=== PATIENT | male | born 1995 | race Hispanic/Latino ===

== ENCOUNTER 2018-11-23 22:45 | Emergency (ER) | payer OTHER ==
--- NOTE | 2018-11-23 23:52 | EDPHYS ---
Physician Documentation [facility] Name: Lino Sweeney Jr Age: 23 yrs Sex: Male : 1995 Arrival Date: 11/23/2018 Time: 22:49 Bed 5 Private MD: ED Physician Kaz Ma HPI: 11/23 23:51 This 23 yrs old Male presents to ER via Ambulatory with complaints of Head and jmm Ear Problems. 23:51 The patient presents with pain. Onset: The symptoms/episode began/occurred gradually, 1 jmm week(s) ago. 23:51 Modifying factors: The symptoms are alleviated by nothing, the symptoms are aggravated jmm by nothing. Associated signs and symptoms: Pertinent negatives: fever. This is a 23 year old male with no chronic medical conditions that presents to the ED with complaints of left ear pain. Patient states having similar episodes in the past. Patient also complains of a mild chronic headache. Denies fever. . Historical: - Allergies: 23:08 No Known Allergies; tl2 - Home Meds: 23:08 None [Active]; tl2 - PMHx: 23:08 None; tl2 - PSHx: 23:08 None; tl2 - Immunization history:: Adult Immunizations up to date. - Social history:: Smoking status: Patient uses tobacco products, denies chronic smoking, but will smoke occasionally. - Ebola Screening: : No symptoms or risks identified at this time. ROS: 23:51 Constitutional: Negative for fever, chills, and weight loss. jmm 23:51 Neck: Negative for injury, pain, and swelling, Respiratory: Negative for shortness of breath, cough, wheezing, and pleuritic chest pain, Abdomen/GI: Negative for abdominal pain, nausea, vomiting, diarrhea, and constipation. 23:51 ENT: Positive for ear pain. 23:51 Neuro: Positive for headache. 23:51 All other systems are negative. Exam: 23:51 Constitutional: This is a well developed, well nourished patient who is awake, alert, jmm and in no acute distress. Head/Face: atraumatic. Eyes: EOMI, no conjunctival erythema appreciated ENT: Moist Mucus Membranes Neck: Trachea midline, Supple Chest/axilla: Normal chest wall appearance and motion. Cardiovascular: Regular rate and rhythm. No edema appreciated Respiratory: Normal respirations, no respiratory distress appreciated Abdomen/GI: Non distended, soft Back: Normal ROM Skin: General appearance color normal MS/ Extremity: Moves all extremities, no obvious deformities appreciated, no edema noted to the lower extremities Neuro: Awake and alert, normal gait Psych: Behavior is normal, Mood is normal, Patient is cooperative and pleasant 23:51 ENT: TM's: erythema, that is moderate, on the left. Vital Signs: 23:08 BP 139 / 74; Pulse 100; Resp 20; Temp 98.2(O); Pulse Ox 98% on R/A; Weight 90.72 kg; tl2 Height 5 ft. 7 in. (170.18 cm); Pain 02/02; 11/24 00:16 BP 120 / 69; Pulse 80; Resp 16; Temp 98.2; Pulse Ox 98% on R/A; ak1 11/23 23:08 Body Mass Index 31.32 (90.72 kg, 170.18 cm) tl2 MDM: 11/23 23:51 Patient medically screened. [facility] 23:51 Data reviewed: vital signs, nurses notes. Counseling: I had a detailed discussion with jag the patient and/or guardian regarding: the historical points, exam findings, and any diagnostic results supporting the discharge/admit diagnosis, the need for outpatient follow up, to return to the emergency department if symptoms worsen or persist or if there are any questions or concerns that arise at home. 23:51 ED course: Patient is alert and non toxic in appearance in the ED. PE findings jmm consistent with OM. Patient is advised to follow up with ENT for further evaluation. . Administered Medications: No medications were administered Disposition: 11/23/18 23:52 Discharged to Home. Impression: Acute serous otitis media, left ear. - Condition is Stable. - Discharge Instructions: Otitis Media, Adult. - Prescriptions for Amoxicillin 875 mg Oral Tablet - take 1 tablet by ORAL route every 12 hours for 10 days; 20 tablet. - Medication Reconciliation Form, Thank You Letter, Antibiotic Education, Prescription Opioid Use form. - Follow up: Private Physician; When: 2 - 3 days; Reason: Recheck today's complaints, Continuance of care, Re-evaluation by your physician. Signatures: Chas Ying PA PA jmm Krenek, Amber RN RN ak1 Perea, Talia, RN RN tl2 Corrections: (The following items were deleted from the chart) 11/24 00:17 11/23 23:52 11/23/2018 23:52 Discharged to Home. Impression: Acute serous otitis media, ak1 left ear. Condition is Stable. Forms are Medication Reconciliation Form, Thank You Letter, Antibiotic Education, Prescription Opioid Use. Follow up: Private Physician; When: 2 - 3 days; Reason: Recheck today's complaints, Continuance of care, Re-evaluation by your physician. jag
--- NOTE | 2018-11-23 23:52 | ER ---
Nurse's Notes [facility] Name: Lino Sweeney Jr Age: 23 yrs Sex: Male : 1995 Arrival Date: 11/23/2018 Time: 22:49 Bed 5 Private MD: Diagnosis: Acute serous otitis media, left ear Presentation: 11/23 23:07 Presenting complaint: Patient states: head pain and left ear pain. Pt states he's had tl2 ear pain for 3 years but it's worse today. Transition of care: patient was not received from another setting of care. Onset of symptoms is unknown. Risk Assessment: Do you want to hurt yourself or someone else? Patient reports no desire to harm self or others. Initial Sepsis Screen: Does the patient meet any 2 criteria? No. Patient's initial sepsis screen is negative. Does the patient have a suspected source of infection? No. Patient's initial sepsis screen is negative. Care prior to arrival: None. 23:07 Method Of Arrival: Ambulatory tl2 23:07 Acuity: VIOLETTE 4 tl2 Triage Assessment: 23:08 General: Appears in no apparent distress. uncomfortable, Behavior is calm, cooperative, tl2 appropriate for age. Pain: Complains of pain in left ear. Historical: - Allergies: 23:08 No Known Allergies; tl2 - Home Meds: 23:08 None [Active]; tl2 - PMHx: 23:08 None; tl2 - PSHx: 23:08 None; tl2 - Immunization history:: Adult Immunizations up to date. - Social history:: Smoking status: Patient uses tobacco products, denies chronic smoking, but will smoke occasionally. - Ebola Screening: : No symptoms or risks identified at this time. Screenin:23 Abuse screen: Denies threats or abuse. Denies injuries from another. Nutritional ak1 screening: No deficits noted. Tuberculosis screening: No symptoms or risk factors identified. Fall Risk None identified. Assessment: 11/24 00:16 Reassessment: Patient appears in no apparent distress at this time. Patient and/or ak1 family updated on plan of care and expected duration. Pain level reassessed. Patient is alert, oriented x 3, equal unlabored respirations, skin warm/dry/pink. Vital Signs: 11/23 23:08 BP 139 / 74; Pulse 100; Resp 20; Temp 98.2(O); Pulse Ox 98% on R/A; Weight 90.72 kg; tl2 Height 5 ft. 7 in. (170.18 cm); Pain 02/02; 11/24 00:16 BP 120 / 69; Pulse 80; Resp 16; Temp 98.2; Pulse Ox 98% on R/A; ak1 11/23 23:08 Body Mass Index 31.32 (90.72 kg, 170.18 cm) tl2 ED Course: 11/23 22:49 Patient arrived in ED. do 23:08 Triage completed. tl2 23:08 Arm band placed on right wrist. tl2 23:23 Silvia Ellis, RN is Primary Nurse. ak1 23:23 Patient has correct armband on for positive identification. Bed in low position. Call ak1 light in reach. Side rails up X 1. Pulse ox on. NIBP on. 23:28 Chas Ying PA is PHCP. [facility] 23:28 Kaz Ma MD is Attending Physician. [facility] 11/24 00:11 No provider procedures requiring assistance completed. Patient did not have IV access ak1 during this emergency room visit. Administered Medications: No medications were administered Outcome: 11/23 23:52 Discharge ordered by . [facility] 11/24 00:11 Discharged to home ambulatory. ak1 Condition: good Discharge instructions given to patient, Instructed on discharge instructions, follow up and referral plans. no drinking with medication, no driving heavy equipment, medication usage, Demonstrated understanding of instructions, follow-up care, medications, Prescriptions given X 1. 00:17 Patient left the ED. ak1 Signatures: Chas Ying PA PA jmm Krenek, Amber, RN RN ak1 Natty Fleming Taylor RN RN tl2
== END 2018-11-24 00:17 | disposition home or self-care (01) ==
LOC: ER 22:45
DX: H65.02 Acute serous otitis media, left ear (principal); Z72.0 Tobacco use
CPT/HCPCS: 99283

== ENCOUNTER 2019-07-19 14:27 | Emergency (ER) | payer SELFPAY ==
[2019-07-19] MEDS ORDERED: ACETAMINOPHEN 500 MG TAB ONE (14:42)
[2019-07-19] MEDS ORDERED: NA CHLORIDE 0.9% 1,000 ML ONE (15:04)
[2019-07-19 15:32] LABS: Absolute Lymphocytes (CBC) 0.9 K/uL (0.7-4.9); Basophils % 0.1 % (0-1.3); Hematocrit 44.4 % (39.6-49.0); Lymphocytes % 6.7 % (15.3-44.8); MPV 11.4 fL (7.6-11.3)
[2019-07-19 15:42] LABS: Urine Amorphous Sediment 1+ /HPF (NONE SEEN); Urine Bacteria <20 /HPF (NONE SEEN); Urine Culture Reflex Order REFLEXED; Urine Mucus 2+ /HPF (NONE SEEN); Urine RBC <5 /HPF (NONE SEEN); Urine Sperm PRESENT (NONE SEEN)
[2019-07-19 15:46] LABS: Albumin 3.7 g/dL (3.4-5.0); Bilirubin Direct 0.6 mg/dL (0-0.2); Bilirubin Total 2.7 mg/dL (0.2-1.0); Potassium 3.5 mmol/L (3.5-5.1); Protein, Total 8.2 g/dL (6.4-8.2)
--- NOTE | 2019-07-19 16:03 | RAD REPORT ---
EXAM DESCRIPTION: RAD - Chest Single View - 07/19/2019 3:50 pm CLINICAL HISTORY: COUGH Chest pain. COMPARISON: No comparisons FINDINGS: Portable technique limits examination quality. Mildly prominent interstitial lung markings are seen. The heart is normal in size. No displaced fract ures. IMPRESSION: Interstitial prominence is seen likely representing viral pneumonitis or bronchitis.
[2019-07-19 16:04] LABS: Urine White Blood Cell Casts OK
[2019-07-19 16:05] LABS: Blood Morphology Comment NOT SEEN (NOT SEEN); Platelet Estimate ADEQ; Platelets, Giant PRESENT
--- NOTE | 2019-07-19 16:50 | RAD REPORT ---
EXAM DESCRIPTION: CTAbdomen Pelvis W Contrast - 07/19/2019 4:41 pm CLINICAL HISTORY: Abdominal pain. abd pain COMPARISON: No comparisons TECHNIQUE: Biphasic CT imaging of the abdomen and pelvis was performed with 100 ml non-ionic IV cont rast. All CT scans are performed using dose optimization technique as appropriate and may include automated exposure control or mA/KV adjustment according to patient size. FINDINGS: Poorly defined ground-glass opacities in both lung bases suggests alveolitis/inflammation. The liver demonstrates diffuse fatty infiltration. The spleen, pancreas, adrenal glands and kidneys a re within normal limits. No bowel obstruction, free air, free fluid or abscess. The appendix is normal. No evidence of signi ficant lymphadenopathy. No suspicious bony findings. IMPRESSION: Ground-glass opacities in both lung bases suggests alveolitis/inflammation. Mild fatty liver.
--- NOTE | 2019-07-19 17:01 | EDPHYS ---
Physician Documentation [facility] Name: Lino Sweeney Jr Age: 24 yrs Sex: Male : 1995 Arrival Date: 07/19/2019 Time: 14:29 Bed 25 Private MD: ED Physician Nico Harris HPI: 07/19 15:06 This 24 yrs old Male presents to ER via Ambulatory with complaints of body jr8 aches, Feels warm to touch. 15:06 The patient reports fever, with an emergency department temperature of 100.5 degrees jr8 Fahrenheit. Onset: The symptoms/episode began/occurred gradually, 4 day(s) ago. Modifying factors: there are no obvious modifying factors. Associated signs and symptoms: Pertinent positives: arthralgias, nausea. Severity of symptoms: At their worst the symptoms were mild in the emergency department the symptoms are unchanged. The patient has not experienced similar symptoms in the past. The patient has not recently seen a physician. 15:06 Stated that this morning noted a change in urine color. Thought he may have saw some jr8 blood . Historical: - Allergies: 14:35 No Known Allergies; rv - Home Meds: 14:35 None [Active]; rv - PMHx: 14:35 None; rv - PSHx: 14:35 None; rv - Immunization history:: Adult Immunizations. - Social history:: Smoking status: Patient/guardian denies using tobacco, the patient reports quitting approximately .5 years ago. - Ebola Screening: : No symptoms or risks identified at this time. ROS: 15:06 Eyes: Negative for injury, pain, redness, and discharge, ENT: Negative for injury, jr8 pain, and discharge, Neck: Negative for injury, pain, and swelling, Cardiovascular: Negative for chest pain, palpitations, and edema, Respiratory: Negative for shortness of breath, cough, wheezing, and pleuritic chest pain, Back: Negative for injury and pain, MS/Extremity: Negative for injury and deformity, Skin: Negative for injury, rash, and discoloration. 15:06 Constitutional: Positive for body aches, chills, fever. 15:06 Abdomen/GI: Positive for nausea, Negative for abdominal pain, vomiting, diarrhea, constipation, abdominal cramps, abdominal distension, anorexia, dysphagia, hematemesis, black/tarry stool, rectal pain, rectal bleeding, bowel incontinence, flatulence. 15:06 : Positive for hematuria. 15:06 Neuro: Positive for headache, Negative for altered mental status, dizziness, gait disturbance, hearing loss, loss of consciousness, numbness, seizure activity, speech changes, syncope, near syncope, tingling, tinnitus, tremor, visual changes, weakness. Exam: 15:06 Eyes: Pupils equal round and reactive to light, extra-ocular motions intact. Lids and jr8 lashes normal. Conjunctiva and sclera are non-icteric and not injected. Cornea within normal limits. Periorbital areas with no swelling, redness, or edema. ENT: Nares patent. No nasal discharge, no septal abnormalities noted. Tympanic membranes are normal and external auditory canals are clear. Oropharynx with no redness, swelling, or masses, exudates, or evidence of obstruction, uvula midline. Mucous membranes moist. Neck: Trachea midline, no thyromegaly or masses palpated, and no cervical lymphadenopathy. Supple, full range of motion without nuchal rigidity, or vertebral point tenderness. No Meningismus. Cardiovascular: Regular rate and rhythm with a normal S1 and S2. No gallops, murmurs, or rubs. Normal PMI, no JVD. No pulse deficits. Respiratory: Lungs have equal breath sounds bilaterally, clear to auscultation and percussion. No rales, rhonchi or wheezes noted. No increased work of breathing, no retractions or nasal flaring. Abdomen/GI: Soft, non-tender, with normal bowel sounds. No distension or tympany. No guarding or rebound. No evidence of tenderness throughout. Back: No spinal tenderness. No costovertebral tenderness. Full range of motion. Skin: Warm, dry with normal turgor. Normal color with no rashes, no lesions, and no evidence of cellulitis. MS/ Extremity: Pulses equal, no cyanosis. Neurovascular intact. Full, normal range of motion. Neuro: Awake and alert, GCS 15, oriented to person, place, time, and situation. Cranial nerves II-XII grossly intact. Motor strength 5/5 in all extremities. Sensory grossly intact. Cerebellar exam normal. Normal gait. Vital Signs: 14:33 BP 134 / 82; Pulse 104; Resp 18; Temp 100.5; Pulse Ox 96% ; Weight 90.72 kg; Height 5 rv ft. 6 in. (167.64 cm); 16:38 BP 120 / 80; Pulse 88; Resp 16; Temp 99.1(O); Pulse Ox 97% ; lt1 17:12 BP 122 / 75; Pulse 86; Resp 18; Pulse Ox 99% on R/A; aj1 14:33 Body Mass Index 32.28 (90.72 kg, 167.64 cm) rv MDM: 14:40 Patient medically screened. jr8 16:32 Data reviewed: vital signs, nurses notes, lab test result(s), radiologic studies, CT jr8 scan, plain films. Data interpreted: Pulse oximetry: on room air is 96 %. Interpretation: normal. Counseling: I had a detailed discussion with the patient and/or guardian regarding: the historical points, exam findings, and any diagnostic results supporting the discharge/admit diagnosis, lab results, radiology results, the need for outpatient follow up, a family practitioner, to return to the emergency department if symptoms worsen or persist or if there are any questions or concerns that arise at home. 16:53 ED course: No acute radiographic findings or lab findings to suggest admission. Most jr8 likely viral related illness. Will d/c home to f/u with PCP . 07/19 14:46 Order name: Urine Dipstick-Ancillary (obtain specimen); Complete Time: 14:56 jr8 07/19 14:56 Order name: Urine Dipstick--Ancillary (enter results) lt1 07/19 16:17 Order name: CT Abd/Pelvis - IV Contrast Only jr8 07/19 14:54 Order name: IV Saline Lock; Complete Time: 15:18 jr8 07/19 14:54 Order name: Labs collected and sent; Complete Time: 15:18 jr8 Administered Medications: 14:43 Drug: Tylenol 1000 mg Route: PO; rv 17:12 Follow up: Response: No adverse reaction aj1 15:03 Drug: NS 0.9% 1000 ml Route: IV; Rate: 100 ml/hr; Site: left antecubital; aj1 17:12 Follow up: IV Status: Completed infusion; IV Intake: 1000ml aj1 Disposition: 07/19/19 16:54 Discharged to Home. Impression: Fever, unspecified. - Condition is Stable. - Discharge Instructions: Fever, Adult. - Medication Reconciliation Form, Thank You Letter, Antibiotic Education, Prescription Opioid Use form. - Follow up: Private Physician; When: 2 - 3 days; Reason: Recheck today's complaints, Continuance of care, Re-evaluation by your physician. - Problem is new. - Symptoms have improved. Addendum: 07/27/2019 07:28 Co-signature as Attending Physician, Nico Harris MD. m a2 Signatures: Dispatcher [employer] EDFlory Downey RN RN aj1 Atif White PA PA jr8 Nico Harris MD MD ma2 Ludwin Lambert RN RN rv Corrections: (The following items were deleted from the chart) 07/19 17:13 16:54 07/19/2019 16:54 Discharged to Home. Impression: Fever, unspecified. Condition is aj1 Stable. Forms are Medication Reconciliation Form, Thank You Letter, Antibiotic Education, Prescription Opioid Use. Follow up: Private Physician; When: 2 - 3 days; Reason: Recheck today's complaints, Continuance of care, Re-evaluation by your physician. Problem is new. Symptoms have improved. jr8
--- NOTE | 2019-07-19 17:01 | ER ---
Nurse's Notes [facility] Name: Lino Sweeney Jr Age: 24 yrs Sex: Male : 1995 Arrival Date: 07/19/2019 Time: 14:29 Bed 25 Private MD: Diagnosis: Fever, unspecified Presentation: 07/19 14:30 Presenting complaint: Patient states: 4-5 days been feeling weak and exhausted. muscle rv ache and my throat is hurting and feels dry. I can't eat. vomiting twice a day at least. Transition of care: patient was not received from another setting of care. Onset of symptoms was July 15, 2019 at 08:00. Risk Assessment: Do you want to hurt yourself or someone else? Patient reports no desire to harm self or others. Initial Sepsis Screen: Does the patient meet any 2 criteria? No. Patient's initial sepsis screen is negative. Does the patient have a suspected source of infection? No. Patient's initial sepsis screen is negative. Care prior to arrival: None. 14:30 Method Of Arrival: Ambulatory rv 14:30 Acuity: VIOLETTE 3 ss Historical: - Allergies: 14:35 No Known Allergies; rv - Home Meds: 14:35 None [Active]; rv - PMHx: 14:35 None; rv - PSHx: 14:35 None; rv - Immunization history:: Adult Immunizations. - Social history:: Smoking status: Patient/guardian denies using tobacco, the patient reports quitting approximately .5 years ago. - Ebola Screening: : No symptoms or risks identified at this time. Screenin:53 Abuse screen: Denies threats or abuse. Denies injuries from another. Nutritional aj1 screening: No deficits noted. Tuberculosis screening: No symptoms or risk factors identified. 17:12 Fall Risk None identified. aj1 Assessment: 14:53 General: Appears in no apparent distress. uncomfortable, Behavior is calm, cooperative, aj1 appropriate for age. Pain: Complains of pain in generalized body aches. Neuro: Level of Consciousness is awake, alert, obeys commands, Oriented to person, place, time, situation. Cardiovascular: Patient's skin is warm and dry. Respiratory: Airway is patent Respiratory effort is even, unlabored, Respiratory pattern is regular, symmetrical. GI: Abdomen is non-distended, Reports nausea, vomiting. : No signs and/or symptoms were reported regarding the genitourinary system. EENT: Reports sore throat. Derm: No signs and/or symptoms reported regarding the dermatologic system. Skin is pink, warm \T\ dry. normal. Musculoskeletal: No signs and/or symptoms reported regarding the musculoskeletal system. Circulation, motion, and sensation intact. 16:14 Reassessment: Patient appears in no apparent distress at this time. No changes from aj1 previously documented assessment. Patient and/or family updated on plan of care and expected duration. Pain level reassessed. Patient is alert, oriented x 3, equal unlabored respirations, skin warm/dry/pink. 17:11 Reassessment: Patient appears in no apparent distress at this time. No changes from aj1 previously documented assessment. Patient and/or family updated on plan of care and expected duration. Pain level reassessed. Patient is alert, oriented x 3, equal unlabored respirations, skin warm/dry/pink. Vital Signs: 14:33 BP 134 / 82; Pulse 104; Resp 18; Temp 100.5; Pulse Ox 96% ; Weight 90.72 kg; Height 5 rv ft. 6 in. (167.64 cm); 16:38 BP 120 / 80; Pulse 88; Resp 16; Temp 99.1(O); Pulse Ox 97% ; lt1 17:12 BP 122 / 75; Pulse 86; Resp 18; Pulse Ox 99% on R/A; aj1 14:33 Body Mass Index 32.28 (90.72 kg, 167.64 cm) rv ED Course: 14:29 Patient arrived in ED. am2 14:33 Triage completed. rv 14:35 Arm band placed on Patient placed in the treatment room, on a stretcher, on pulse rv oximetry, Patient notified of wait time. 14:40 Atif White PA is PHCP. jr8 14:40 Nico Harris MD is Attending Physician. jr8 14:45 Sussy Siddiqi RN is Primary Nurse. ss 14:53 Patient has correct armband on for positive identification. aj1 14:53 No provider procedures requiring assistance completed. aj1 15:18 Initial lab(s) drawn, by nm, sent to lab. Urine collected: clean catch specimen. lt1 Inserted saline lock: 20 gauge in left antecubital area, using aseptic technique. 16:41 CT completed. Patient tolerated procedure well. Patient moved to MD. Patient moved back wi from CT. 16:52 PHCP role handed off by Atif White PA jmm 16:52 Chas Ying [facility] is [facility]. jag 16:53 PHCP role handed off by Chas Ying PA jr8 16:53 Atif White PA is PHCP. jrVelma 17:12 IV discontinued, intact, bleeding controlled, No redness/swelling at site. Pressure aj1 dressing applied. Administered Medications: 14:43 Drug: Tylenol 1000 mg Route: PO; rv 17:12 Follow up: Response: No adverse reaction aj1 15:03 Drug: NS 0.9% 1000 ml Route: IV; Rate: 100 ml/hr; Site: left antecubital; aj1 17:12 Follow up: IV Status: Completed infusion; IV Intake: 1000ml aj1 Intake: 17:12 IV: 1000ml; Total: 1000ml. aj1 Outcome: 16:54 Discharge ordered by . elizabeth 17:12 Discharged to home ambulatory. aj1 17:12 Condition: good 17:12 Discharge instructions given to patient, Instructed on discharge instructions, follow up and referral plans. Demonstrated understanding of instructions, follow-up care. 17:13 Patient left the ED. aj1 Signatures: Flory Cole RN RN aj1 Chas Ying PA PA jmm Smirch, Shelby, RN RN ss Roszak, Josh, PA PA jr8 Scooter Reid Amanda am2 Vicente, Ronaldo, RN RN rv Tran, Leah lt1 Corrections: (The following items were deleted from the chart) 14:57 14:30 Acuity: VIOLETTE 4 rv ss
[2019-07-19 17:29] VITALS: TEMP 99.1
[2019-07-19 17:30] VITALS: BP 122/75; O2SAT 99
[2019-07-19 18:56] LABS: Urine Blood TRACE (NEG); Urine Glucose TRACE (NEG); Urine Protein 3+ (NEG); Urine Specific Gravity 1.025 (1.005-1.030)
== END 2019-07-19 17:13 | disposition home or self-care (01) ==
LOC: ER 14:27
DX: R50.9 Fever, unspecified (principal)
CPT/HCPCS: 36415; 71045; 74177; 80048; 80076; 81003; 81015; 83690; 85025; 87070; 87081; 87086; 87088; 87804; 96360; 96361; 99284; J7030; Q9967

== ENCOUNTER 2022-05-13 21:54 | Emergency (ER) | payer SELFPAY ==
[2022-05-13] MEDS ORDERED: PROMETHAZINE INJ 25 MG/ML AMP ONE (22:47)
[2022-05-13] MEDS ORDERED: FENTANYL CITR 100 MCG/2 ML ONE (22:48)
[2022-05-13] MEDS ORDERED: NA CHLORIDE 0.9% 1,000 ML ONE (22:48)
[2022-05-13 23:08] LABS: Absolute Lymphocytes (CBC) 1.6 K/uL (0.7-4.9); Hematocrit 49.1 % (39.6-49.0); Lymphocytes % 11.5 % (15.3-44.8); MCV 90.2 fL (80-100); RBC Red Blood Cell Count 5.44 M/uL (4.33-5.43)
[2022-05-13 23:18] LABS: SARS-CoV-2 Antigen Rapid Res Negative (Negative)
[2022-05-13 23:23] LABS: Albumin 4.3 g/dL (3.4-5.0); Bilirubin Total 1.1 mg/dL (0.2-1.0); Potassium 3.7 mmol/L (3.5-5.1)
--- NOTE | 2022-05-14 02:04 | EDPHYS ---
Physician Documentation [facility] Name: Lino Sweeney Jr Age: 27 yrs Sex: Male : 1995 Arrival Date: 05/13/2022 Time: 21:55 Bed 14 Private MD: ED Physician Juan Newman HPI: 05/13 23:21 This 27 yrs old Male presents to ER via Ambulatory with complaints of snw Abdominal Pain. 23:21 The patient presents with abdominal pain that is diffuse. Onset: The symptoms/episode snw began/occurred suddenly, today. The symptoms do not radiate. Associated signs and symptoms: Pertinent positives: nausea and vomiting, constipation. Severity of pain: At its worst the pain was moderate severe in the emergency department the pain is unchanged. The patient has not experienced similar symptoms in the past. The patient has not recently seen a physician. Historical: - Allergies: 22:32 No Known Allergies; kb3 - Home Meds: 22:32 None [Active]; kb3 - PMHx: 22:32 None; kb3 - PSHx: 22:32 None; kb3 - Immunization history:: Adult Immunizations up to date, Client reports having NOT received the Covid vaccine. Last tetanus immunization: unknown. - Social history:: Smoking status: Patient denies any tobacco usage or history of. ROS: 23:20 Constitutional: Negative for fever, chills, and weight loss, Eyes: Negative for injury, snw pain, redness, and discharge, ENT: Negative for injury, pain, and discharge, Neck: Negative for injury, pain, and swelling, Cardiovascular: Negative for chest pain, palpitations, and edema, Respiratory: Negative for shortness of breath, cough, wheezing, and pleuritic chest pain, Back: Negative for injury and pain, : Negative for injury, bleeding, discharge, and swelling, MS/Extremity: Negative for injury and deformity, Skin: Negative for injury, rash, and discoloration, Neuro: Negative for headache, weakness, numbness, tingling, and seizure, Psych: Negative for depression, anxiety, suicide ideation, homicidal ideation, and hallucinations. 23:20 Abdomen/GI: Positive for abdominal pain, nausea and vomiting, constipation. Exam: 23:20 Constitutional: This is a well developed, well nourished patient who is awake, alert, snw and in no acute distress. Head/Face: Normocephalic, atraumatic. Eyes: Pupils equal round and reactive to light, extra-ocular motions intact. Lids and lashes normal. Conjunctiva and sclera are non-icteric and not injected. Cornea within normal limits. Periorbital areas with no swelling, redness, or edema. ENT: Nares patent. No nasal discharge, no septal abnormalities noted. Tympanic membranes are normal and external auditory canals are clear. Oropharynx with no redness, swelling, or masses, exudates, or evidence of obstruction, uvula midline. Mucous membranes moist. Neck: Trachea midline, no thyromegaly or masses palpated, and no cervical lymphadenopathy. Supple, full range of motion without nuchal rigidity, or vertebral point tenderness. No Meningismus. Chest/axilla: Normal chest wall appearance and motion. Nontender with no deformity. No lesions are appreciated. Cardiovascular: Regular rate and rhythm with a normal S1 and S2. No gallops, murmurs, or rubs. Normal PMI, no JVD. No pulse deficits. Respiratory: Lungs have equal breath sounds bilaterally, clear to auscultation and percussion. No rales, rhonchi or wheezes noted. No increased work of breathing, no retractions or nasal flaring. 23:20 Back: No spinal tenderness. No costovertebral tenderness. Full range of motion. Skin: Warm, dry with normal turgor. Normal color with no rashes, no lesions, and no evidence of cellulitis. MS/ Extremity: Pulses equal, no cyanosis. Neurovascular intact. Full, normal range of motion. Neuro: Awake and alert, GCS 15, oriented to person, place, time, and situation. Cranial nerves II-XII grossly intact. Motor strength 5/5 in all extremities. Sensory grossly intact. Cerebellar exam normal. Normal gait. 23:20 Abdomen/GI: Inspection: abdomen appears normal, Bowel sounds: diminished, in all quadrants, Palpation: mild abdominal tenderness, in all quadrants. Vital Signs: 22:31 BP 137 / 103; Pulse 66; Resp 20; Temp 98.1; Pulse Ox 100% ; Weight 90.72 kg; Height 5 kb3 ft. 6 in. (167.64 cm); Pain 10/10; 22:43 BP 130 / 81; Pulse 59; Resp 16 S; Pulse Ox 97% on R/A; aa9 23:00 BP 118 / 68; Pulse 58; Resp 16 S; Pulse Ox 100% on R/A; aa9 23:15 BP 117 / 77; Pulse 63; Resp 16; Pulse Ox 100% on R/A; aa9 23:55 BP 119 / 89; Pulse 54; Resp 16 S; Pulse Ox 100% on R/A; aa9 05/14 00:00 BP 119 / 77; Pulse 58; Resp 18 S; Pulse Ox 98% on R/A; aa9 00:15 BP 128 / 68; Pulse 53; Resp 17 S; Pulse Ox 98% on R/A; aa9 00:30 BP 112 / 75; Pulse 54; Resp 16; Pulse Ox 99% on R/A; aa9 00:45 BP 114 / 65; Pulse 54; Resp 16 S; Pulse Ox 98% on R/A; aa9 01:24 BP 113 / 65; Pulse 55; Resp 15 S; Pulse Ox 99% on R/A; aa9 01:30 BP 110 / 91; Pulse 53; Resp 17 S; Pulse Ox 98% on R/A; aa9 05/13 22:31 Body Mass Index 32.28 (90.72 kg, 167.64 cm) kb3 MDM: 05/13 22:20 Patient medically screened. snw 05/14 02:05 Data reviewed: vital signs, nurses notes. Data interpreted: Pulse oximetry: on room air snw is 98 %. Counseling: I had a detailed discussion with the patient and/or guardian regarding: the historical points, exam findings, and any diagnostic results supporting the discharge/admit diagnosis, lab results, radiology results, the need for outpatient follow up, to return to the emergency department if symptoms worsen or persist or if there are any questions or concerns that arise at home. Special discussion: Based on the patient's Hx, exam, and Dx evaluation, there is no indication for emergent surgery or inpatient Tx. It is understood by the patient/guardian that if the Sx's persist or worsen they need to return immediately for re-evaluation. Based on the history and exam findings, there is no indication for further emergent testing or inpatient evaluation. I discussed with the patient/guardian the need to see the primary care provider for further evaluation of the symptoms. 05/13 22:39 Order name: Flu; Complete Time: 23:32 snw 05/13 22:39 Order name: SARS RAPID; Complete Time: 23:19 snw 05/13 22:39 Order name: CBC with Diff; Complete Time: 23:14 snw 05/13 22:39 Order name: CMP; Complete Time: 23:24 snw 05/13 23:15 Order name: CT Abd/Pelvis - IV Contrast Only snw Administered Medications: 05/13 23:01 Drug: NS 0.9% 1000 ml Route: IV; Rate: 1000 ml; Site: right antecubital; aa9 23:37 Follow up: Response: No adverse reaction; IV Status: Completed infusion; IV Intake: aa9 1000ml 23:01 Drug: Phenergan (promethazine) 25 mg Route: IM; Site: left deltoid; aa9 23:37 Follow up: Response: No adverse reaction aa9 23:01 Drug: fentaNYL (PF) 25 mcg Route: IVP; Site: right antecubital; aa9 23:36 Follow up: Response: No adverse reaction; RASS: Drowsy (-1) aa9 Disposition: 05/14 02:53 Co-signature as Attending Physician, Juan Newman MD. rn Disposition Summary: 05/14/22 02:04 Discharge Ordered Location: Home snw Condition: Stable snw Diagnosis - Abdominal pain, Generalized snw - Nausea with vomiting, unspecified snw Followup: snw - With: Emergency Department - When: As needed - Reason: Worsening of condition Followup: snw - With: Private Physician - When: 2 - 3 days - Reason: Recheck today's complaints, Continuance of care, Re-evaluation by your physician Discharge Instructions: - Discharge Summary Sheet snw - Abdominal Pain, Adult snw - Nausea and Vomiting, Adult snw - Gas and Gas Pains, Pediatric snw - Rehydration, Adult snw - [place] Diet snw Forms: - Medication Reconciliation Form snw - Thank You Letter snw - Antibiotic Education snw - Prescription Opioid Use snw - Work release form snw Prescriptions: - Zofran 4 mg Oral Tablet - take 1 tablet by ORAL route every 12 hours As needed; 20 tablet; Refills: 0, snw Product Selection Permitted - dicyclomine 20 mg Oral Tablet - take 1 tablet by ORAL route 3 times per day; 20 tablet; Refills: 0, Product snw Selection Permitted Signatures: Dispatcher [employer] EDMS Belinda, Brii, PAPERBACK MACHINE OPERATOR-C PAPERBACK MACHINE OPERATOR-Csnw Juan Newman MD MD rn Opal Shen, RN RN aa9 Evie Tejeda, RN RN kb3
--- NOTE | 2022-05-14 02:04 | ER ---
Nurse's Notes [facility] Name: Lino Sweeney Jr Age: 27 yrs Sex: Male : 1995 Arrival Date: 05/13/2022 Time: 21:55 Bed 14 Private MD: Diagnosis: Abdominal pain, Generalized;Nausea with vomiting, unspecified Presentation: 05/13 22:31 Chief complaint: Patient states: Epigastric and periumbilical pain that began this kb3 morning with associated N/V/D. Coronavirus screen: Vaccine status: Patient reports being unvaccinated. Client denies travel out of the [place] in the last 14 days. Ebola Screen: Patient negative for fever greater than or equal to 101.5 degrees Fahrenheit, and additional compatible Ebola Virus Disease symptoms Patient denies exposure to infectious person. Patient denies travel to an Ebola-affected area in the 21 days before illness onset. No symptoms or risks identified at this time. Initial Sepsis Screen: Does the patient meet any 2 criteria? No. Patient's initial sepsis screen is negative. Does the patient have a suspected source of infection? No. Patient's initial sepsis screen is negative. Risk Assessment: Do you want to hurt yourself or someone else? Patient reports no desire to harm self or others. Onset of symptoms was May 13, 2022 at 08:00. 22:31 Method Of Arrival: Ambulatory 3 22:31 Acuity: VIOLETTE 3 kb3 Triage Assessment: 22:32 General: Appears distressed, uncomfortable, ill, Behavior is calm, cooperative. Pain: kb3 Complains of pain in epigastric area, umbilical area, right upper quadrant and left upper quadrant Pain does not radiate. Pain currently is 10 out of 10 on a pain scale. Quality of pain is described as burning, HOT inside Pain began suddenly, 1 day ago. Is continuous. GI: Abdomen is round Reports upper abdominal pain, diarrhea, epigastric pain, nausea, vomiting. Historical: - Allergies: 22:32 No Known Allergies; kb3 - Home Meds: 22:32 None [Active]; kb3 - PMHx: 22:32 None; kb3 - PSHx: 22:32 None; kb3 - Immunization history:: Adult Immunizations up to date, Client reports having NOT received the Covid vaccine. Last tetanus immunization: unknown. - Social history:: Smoking status: Patient denies any tobacco usage or history of. Screenin:43 Abuse screen: Denies threats or abuse. Denies injuries from another. Nutritional aa9 screening: No deficits noted. Tuberculosis screening: No symptoms or risk factors identified. Fall Risk None identified. Assessment: 22:42 General: Appears comfortable, Behavior is calm, cooperative. Pain: Complains of pain in aa9 abdomen Quality of pain is described as hot and bubbly. Neuro: Level of Consciousness is awake, alert, obeys commands, Oriented to person, place, time, situation. Cardiovascular: Patient's skin is warm and dry. Respiratory: Airway is patent Respiratory effort is even, unlabored. GI: Bowel sounds present X 4 quads. Abd is soft X 4 quads Abdomen is tender to palpation in right lower quadrant. 05/14 00:46 Reassessment: Patient appears in no apparent distress at this time. Reassessment: pt aa9 supine in bed, parent at bedside, IV SL. General: Appears comfortable, Behavior is calm, quiet. Cardiovascular: Patient's skin is warm and dry. Vital Signs: 05/13 22:31 BP 137 / 103; Pulse 66; Resp 20; Temp 98.1; Pulse Ox 100% ; Weight 90.72 kg; Height 5 kb3 ft. 6 in. (167.64 cm); Pain 05/05; 22:43 BP 130 / 81; Pulse 59; Resp 16 S; Pulse Ox 97% on R/A; aa9 23:00 BP 118 / 68; Pulse 58; Resp 16 S; Pulse Ox 100% on R/A; aa9 23:15 BP 117 / 77; Pulse 63; Resp 16; Pulse Ox 100% on R/A; aa9 23:55 BP 119 / 89; Pulse 54; Resp 16 S; Pulse Ox 100% on R/A; aa9 05/14 00:00 BP 119 / 77; Pulse 58; Resp 18 S; Pulse Ox 98% on R/A; aa9 00:15 BP 128 / 68; Pulse 53; Resp 17 S; Pulse Ox 98% on R/A; aa9 00:30 BP 112 / 75; Pulse 54; Resp 16; Pulse Ox 99% on R/A; aa9 00:45 BP 114 / 65; Pulse 54; Resp 16 S; Pulse Ox 98% on R/A; aa9 01:24 BP 113 / 65; Pulse 55; Resp 15 S; Pulse Ox 99% on R/A; aa9 01:30 BP 110 / 91; Pulse 53; Resp 17 S; Pulse Ox 98% on R/A; aa9 05/13 22:31 Body Mass Index 32.28 (90.72 kg, 167.64 cm) kb3 ED Course: 05/13 21:55 Patient arrived in ED. ja2 22:04 Brii Trevino FNP-C is PHCP. snw 22:04 Juan Newman MD is Attending Physician. snw 22:32 Triage completed. kb3 22:32 Arm band placed on left wrist. Patient placed in an exam room, on a stretcher. kb3 22:38 Opal Shen, YOUSUF is Primary Nurse. aa9 22:43 Patient has correct armband on for positive identification. Placed in gown. Bed in low aa9 position. Call light in reach. 22:55 Inserted saline lock: 20 gauge in right antecubital area, using aseptic technique. aa9 Blood collected. 23:01 CMP Sent. aa9 23:01 CBC with Diff Sent. aa9 23:01 Flu Sent. aa9 23:01 SARS RAPID Sent. aa9 05/14 00:11 CT Abd/Pelvis - IV Contrast Only In Process Unspecified. EDMS 02:15 No provider procedures requiring assistance completed. IV discontinued, intact, aa9 bleeding controlled, No redness/swelling at site. Pressure dressing applied. Administered Medications: 05/13 23:01 Drug: NS 0.9% 1000 ml Route: IV; Rate: 1000 ml; Site: right antecubital; aa9 23:37 Follow up: Response: No adverse reaction; IV Status: Completed infusion; IV Intake: aa9 1000ml 23:01 Drug: Phenergan (promethazine) 25 mg Route: IM; Site: left deltoid; aa9 23:37 Follow up: Response: No adverse reaction aa9 23:01 Drug: fentaNYL (PF) 25 mcg Route: IVP; Site: right antecubital; aa9 23:36 Follow up: Response: No adverse reaction; RASS: Drowsy (-1) aa9 Medication: 22:43 VIS not applicable for this client. aa9 Intake: 23:37 IV: 1000ml; Total: 1000ml. aa9 Outcome: 05/14 02:04 Discharge ordered by MD. caro 02:15 Discharged to home ambulatory, with family. aa9 02:15 Condition: stable 02:15 Discharge instructions given to patient, Instructed on discharge instructions, follow up and referral plans. medication usage, Demonstrated understanding of instructions, follow-up care, medications, Prescriptions given X 2. 02:15 Patient left the ED. aa9 Signatures: Dispatcher [employer] EDMS Brii Trevino, POLITICAL ORGANIZER-C POLITICAL ORGANIZER-Csnw Carloine Sorenson Aylin, RN RN aa9 Evie Tejeda, RN RN kb3
[2022-05-14 02:20] VITALS: TEMP 98.1
[2022-05-14 02:32] VITALS: BP 110/91; O2SAT 98
--- NOTE | 2022-05-14 10:09 | RAD REPORT ---
EXAM DESCRIPTION: CT - Abdomen Pelvis W Contrast - 05/14/2022 12:06 am COMPARISON: CT abdomen pelvis July 19, 2019 CLINICAL HISTORY: Abdominal pain TECHNIQUE: Multiple helical axial images were obtained through the abdomen and pelvis using intraven ous contrast. Coronal and sagittal reformatted images were obtained. All CT scans at this facility use dose modulation, iterative reconstruction, and/or weight-based dosi ng when appropriate to reduce radiation dose to as low as reasonably achievable. FINDINGS: Lung bases: Appear unremarkable. Liver: There is low-attenuation suggesting fatty changes. Gallbladder/biliary: Appears unremarkable Pancreas: Unremarkable. No evidence of ductal enlargement. Spleen: Appears unremarkable. No splenomegaly. Adrenals: Unremarkable. Kidneys and ureters: No evidence of hydronephrosis. Normal enhancement. Bladder: Unremarkable. Pelvic organs: Unremarkable. Bowel: No evidence of bowel obstruction. No bowel wall thickening. Appendix appears unremarkable. Vasculature: Unremarkable. Peritoneum: No free air. No significant free fluid. Lymph nodes: Unremarkable. Soft tissues: Unremarkable. Bones: There is mild levocurvature of the thoracolumbar spine. No acute findings. IMPRESSION: 1. No evidence for an acute process within the abdomen or pelvis. 2. Hepatic steatosis. Electronically signed by: Nacho Beauchamp MD 05/14/2022 1:58 AM CDT Due to temporary technical issues with the PACS/Fluency reporting system, reports are being signed by the in house radiologists without review as a courtesy to insure prompt reporting. The interpreting radiologist is fully responsible for the content of the report.
== END 2022-05-14 02:15 | disposition home or self-care (01) ==
LOC: ER 21:54
DX: R10.84 Generalized abdominal pain (principal); R11.2 Nausea with vomiting, unspecified; Z20.822 Contact with and (suspected) exposure to COVID-19
CPT/HCPCS: 36415; 74177; 80053; 85025; 87804; 87811; 96361; 96372; 96374; 99284; J2550; J3010; J7030; Q9967